=== PATIENT | female | born 1985 | race Hispanic/Latino ===

== ENCOUNTER 2023-05-27 13:05 | Outpatient (CLI) | payer BC | END 2023-05-27 13:06 | disposition home or self-care (01) | LOC: CSHMRI 13:05 | PROVIDERS: ATTEND Neurological Surgery | DX: M50.20 Other cervical disc displacement, unspecified cervical region (principal); M47.812 Spondylosis without myelopathy or radiculopathy, cervical region | CPT/HCPCS: 72141 ==